=== PATIENT | female | born 1960 | race Caucasian/White ===

== ENCOUNTER 2016-09-14 13:00 | Inpatient (IN) | payer SELFPAY ==
[~2016-09-14] VITALS: Ht 165.1 cm; Wt 124.9 kg
--- NOTE | ~2016-09-14 | OR ---
PATIENT'S NAME: CHEMO DAVALOS [facility] AGE: 55 Y [address] ROOM: [address] [address] LOCATION: [facility] ADMIT DATE: 09/29/2016 OR/Procedure Report DISCHARGE DATE: FAMILY PHYSICIAN: Destini Mg MD ATTENDING PHYSICIAN: Wilfrido Henderson SURGEON: Wilfrido Henderson MD ENGRAVINGS POLISHER: BENNY Ann DATE OF PROCEDURE: 09/29/2016 PREOPERATIVE DIAGNOSIS: Varus osteoarthritis, left knee. POSTOPERATIVE DIAGNOSIS: Varus osteoarthritis, left knee. OPERATION PERFORMED: [facility] computer navigated tricompartmental cemented left total knee replacement. ANESTHESIA: Subarachnoid block. INDICATIONS: This is a 55-year-old female with clinical and radiographic evidence of moderately severe varus OA, left knee, no longer responsive to nonoperative treatment to give her pain relief. DESCRIPTION OF PROCEDURE: The patient was brought to the operating room, and when a satisfactory spinal anesthesia had been established, her left lower extremity was prepped and draped in an aseptic manner. The skin over the planned incision was injected with Armand mix and an anterior incision made and carried down through the subcutaneous fat. The quadriceps tendon and medial capsule were injected with Armand mix and a quadriceps-splitting approach utilized such that the patella could be everted laterally and dislocated. The patella was measured at 22 mm and cut down to 14, and an A32 appeared to fit the best. So, the 3 fixation holes were drilled. The cut surface of the patella was protected with A29 trial. The knee was flexed and the ASM gantry pinned to the distal femoral articular surface. Hip flexion was registered and the center of rotation of the hip found. The center of the intercondylar notch in the AP femoral angle and the medial and lateral femoral condyles were then all registered. The alignment jig was placed and cut planned for 0 degrees of varus and valgus at 5 degrees of flexion and 8 mm depth of resection. The cutting block was pinned in place, and the distal femoral cut was made. The footed sizing jig was then placed and positioned with 3 degrees of external rotation. The 2 provisional fixation holes were drilled and #4 cutting block selected. It was impacted home and the anterior femoral cut made. It was satisfactory, so the anterior femoral chamfer and posterior femoral chamfer cuts were made. The tibia was then exposed and the soft tissues debrided. The ASM gantry was pinned to the tibial articular surface, and the center of the tibia, midline of the tibia, medial and lateral tibial PATIENT'S NAME: CHEMO DAVALOS [facility] AGE: 55 Y [address] ROOM: [address] [address] LOCATION: [facility] ADMIT DATE: 09/29/2016 OR/Procedure Report DISCHARGE DATE: FAMILY PHYSICIAN: Destini Mg MD ATTENDING PHYSICIAN: Wilfrido Henderson plateaus, and medial and lateral malleoli were all registered. The alignment jig was placed and cut planned for 0 degrees of varus and valgus at 4 degrees posterior slope and 9 mm depth of resection off the lateral tibial plateau. The cutting block was pinned in place and the tibial cut made. Posterior capsule was then injected with Armand mix and bleeding controlled with the Aquamantys on the posterior capsule. The #4 tibial template appeared to fit the best, and it was positioned on the top of the tibia and the template pinned in place. The tower was clipped onto the template and the plunger impacted home. The trial reduction was then performed with 9 and 11 mm trial spacers. The 11 mm allowed full extension and was still stable in varus and valgus stressing. The trial implants were removed, and cut bony surfaces irrigated and dried while cement was mixed. The tibial tray was cemented into place first, and excess cement removed while soft with a Pollok elevator. The 11 mm X3 spacer was impacted home, and the femoral and patellar components cemented into place. Excess cement was removed while soft with a Pollok elevator and with an osteotome and mallet once the cement had set. The knee was then irrigated copiously with saline. The quadriceps tendon was then closed with a running #1 Vicryl. The remainder of the closure was by BENNY Isaac, who closed the medial capsule with a running #1 Vicryl, subcutaneous fat with a running 2-0 Vicryl, and the skin with skin vish. Dressings were applied, and the patient sent to the recovery area, having tolerated the procedure well. MD KRISTI HICKEY/sam /[id number] d: 09/29/16 1321 t: 10/01/16 1649, OPERATIVE SUMMARY
--- NOTE | ~2016-09-14 | DS ---
PATIENT'S NAME: CHEMO DAVALOS [facility] [place] AGE: 55 Y [address] ROOM: [address] [address] LOCATION: [id number] ADMIT DATE: 09/29/2016 Discharge Summary DISCHARGE DATE: 10/01/2016 FAMILY PHYSICIAN: Destini Mg MD ATTENDING PHYSICIAN: Wilfrido Henderson ADMISSION DIAGNOSIS: Left knee degenerative joint disease. COMORBIDITIES: Obstructive sleep apnea with home use of BiPAP, tobacco abuse, BMI greater than 45, and COPD. HOSPITAL COURSE: The patient was admitted for the aforementioned degenerative joint disease of her right knee. She had a right total knee arthroplasty performed with [employer] computer-navigated components, size asymmetric 32 patella, size 4 femur, size 4 tibial component, and an 11 x 11 mm thick spacer was placed. At her hospital course, she did get tranexamic acid perioperatively as well as intraoperative local mix for her pericapsular pain relief in the postoperative period. She was put on Xarelto 10 mg p.o. for 12 days for postop DVT prophylaxis. Dilaudid was used for additional pain control. On postop visit, neurovascular was intact to the operative foot. Postop day 1, the pain was reasonably well controlled. Postop hemoglobin was 12.4. On postop day 1, the patient seemed mildly over-sedated and Toradol was added to her pain control regimen. Flexeril was added as the Valium was too sedating for her. DISCHARGE INSTRUCTIONS: As she was discharged to home included dressing change or leave the dressing alone, do not change the Mepilex until followup visit in 6-12 days. May resume Celebrex on October 02. Continue Xarelto for DVT prophylaxis for 10 additional postop days. Prescriptions were written for Flexeril 5 mg 1 p.o. t.i.d. as needed, dispensed 30; nicotine patch in a tapering regimen; Dilaudid 2 mg, 1-2 p.o. q.4 hours as needed for pain, dispensed 60, no refills. BENNY STEVEN FOR MD JACQUELIN HICKEY/sam /[id number] d: 10/07/16 0152 t: 11/03/16 1058, DISCHARGE SUMMARY
[2016-09-14] MEDS ORDERED: ADVIL200 MG PO (13:04)
[2016-09-14] MEDS ORDERED: MAXITROL EYE DRO5 ML OPHTH (13:05)
[2016-09-14] MEDS ORDERED: BIPAP INH (13:06)
[2016-09-14] MEDS ORDERED: OXYGEN M-15 INH (13:06)
--- NOTE | 2016-09-29 17:06 | NUR ---
PATIENT RETURNED TO ROOM AT 1100. VSS. ROUTINE VS. UP TO BR WITH ONE ASSIST, TOLERATED FAIR WITH SOME SOB. O2 SAT ON ROOM AIR WAS ABOVE 90%. USES CPAP AT NIGHT. DILAUDID PO LAST AT 1530, IV DILAUDID AT 1645. VOIDING QS. STOCKINETTE WRAP D/I TO LEFT LEG. PEDAL PULSES DOPPLED. CSM ADEQUATE. NO N/V. VALIUM AT 1530 2.5 MG. USES O2 AT NIGHT WITH CPAP.
--- NOTE | 2016-09-30 03:21 | NUR ---
Significant Event: A/O X 3. SAT UP IN RECLINER CHAIR DURING EVENING. AMBULATED TO BR WITH GAITBELT AND WALKER ONE ASSIST, GAIT SLIGHT UNSTEADY. VOIDS, NO PROBLEM. NO BM, DENIES NUMBNESS OR TINGLING TO LOWER EXTREMITIES. NO NAUSEA, TAKES FLUIDS. IV SALINE LOCK INTACT. ATB THERAPY AT 0000 OF CLINDAMYCIN. AT BEGINNING OF SHIFT SATS 89% ON ROOMAIR. 02 APPLIED 2L NASAL CANNULA. ENCOURAGE INCENTIVE SPIROMETER USAGE. 4050-6102. SOB WITH ACTIVITY, HAD DILAUDID 2MG TAB FOR PAIN. ON ROUTINE SCHEDULE TYLENOL X ST 1000MG 2300/0500. EZ-WRAP TO LEFT KNEE. NANCY HORNER DRY-INTACT. Follow up:
[2016-09-30 05:05] LABS: HEMATOCRIT 37.9 % (33.0-46.0); HEMOGLOBIN 12.4 g/dL (10.0-15.0)
--- NOTE | 2016-09-30 09:15 | NUR ---
Introduced self/role to patient. Lives in [place]. She is self pay as her insurance would not approve this surgery. She has the financial assistance form at home. Has no questions about it. Has the DME she feels like she will need. Denied any barriers to discharge or at home.
--- NOTE | 2016-09-30 16:25 | NUR ---
Significant Event: DRESSING TO L) KNEE C/D/I. CSM ASSESSMENTS WNL TO L) LOWER LEG. AMBULATES TO BATHROOM WITH 1 ASSIST, USE OF WALKER AND GAIT BELT. SHORT OF BREATH WITH ACTIVITY. UP TO CHAIR WITH ASSIST. DILAUDID 2MG TAB GIVEN AT 1615, IV TORADOL AND TYLENOL EXTRA STRENGTH 2 TABS GIVEN AT 1052. EZ WRAP TO L) KNEE. BILATERAL FOOT PUMPS ON. PO VALIUM 5MG GIVEN AT 0934. PLEASANT AND COOPERATIVE WITH CARES. Follow up:
--- NOTE | 2016-10-01 04:26 | NUR ---
Significant Event: A/O X 3. NANCY DRSG LEFT KNEE DRY-INTACT WITH EZ-WRAP. FOOT PUMPS TO FEET. SAT UP IN CHAIR, AMBULATED TO BR WITH ONE ASSIST WALKER AND GAIT BELT, MOVES SLOW. HAS PAIN WITH MOVEMENT. GOLDBERG DDILAUDID 2MG PO, DILAUDID 0.2MG IV. TORADOL 15MG IV FOR PAIN. ON ROUTINE SCHEDULED TYLENOL X ST 1000MG 2300/0500. PAIN RATE 5-10 RANGE. POSSIBLE TO GO HOME TODAY. PATIENT HAS OWN CPAP MACHINE WEARS 02 4L. SATS STAYED ABOVE 90%. sob with activity. Follow up:
[2016-10-01 09:31] LABS: ANION GAP 8.8 (10.0-19.0); BLOOD UREA NITROGEN 10 mg/dL (6-24); CALCIUM 8.2 mg/dL (8.5-10.5); CHLORIDE 104 mMol/L (96-110); CO2 30 mMol/L (22-32); CREATININE 0.7 mg/dL (0.5-1.1); ESTIMATED GFR (MDRD EQUATION) > 60; POTASSIUM 3.8 mMol/L (3.7-5.1); SODIUM 139 mMol/L (135-145)
[2016-10-01] MEDS ORDERED: TYLENOL EXTRA500 MG PO (11:46)
[2016-10-01] MEDS ORDERED: CELEBREX200 MG PO (11:47)
[2016-10-01] MEDS ORDERED: COLACE100 MG PO (11:48)
[2016-10-01] MEDS ORDERED: MIRALAX17 GM PO (11:49)
[2016-10-01] MEDS ORDERED: XARELTO10 MG PO (11:50)
[2016-10-01] MEDS ORDERED: DILAUDID 2MG(HYD2 MG PO (11:53)
[2016-10-01] MEDS ORDERED: FLEXERIL10 MG PO (11:54)
[2016-10-01] MEDS ORDERED: NICOTINE PATCH1 EAC1 TOP (11:56)
--- NOTE | 2016-10-01 13:48 | NUR ---
Patient was AOx3. VSS. CSM WNL. Dressing was C/D/I. FLexiril given prior to dismissal. Patient has no questions or concerns about discharge instructions. Patient was wheeled out to front lobby for dissmissal home with daughter at 1330.
== END 2016-10-01 13:30 | disposition disaster alternative care site (69) | DRG 470 ==
LOC: G3N 09-29 05:59
PROVIDERS: ADMIT Orthopaedic Surgery
PROC: 0SRD0J9 Replacement of Left Knee Joint with Synthetic Substitute, Cemented, Open Approach (ICD-10-PCS; principal; 2016-09-29)
DX: M17.12 Unilateral primary osteoarthritis, left knee (principal); J96.11 Chronic respiratory failure with hypoxia; Z68.42 Body mass index [BMI] 45.0-49.9, adult; G47.33 Obstructive sleep apnea (adult) (pediatric); F17.200 Nicotine dependence, unspecified, uncomplicated; J44.9 Chronic obstructive pulmonary disease, unspecified; E66.01 Morbid (severe) obesity due to excess calories
CPT/HCPCS: C1713; C1776; J0171; J0690; J0735; J1170; J1885; J2001; J2795; J7030; J7040; J7120

== ENCOUNTER → 2016-09-16 | Outpatient (CLI) | payer SELFPAY ==
[~2016-09-16] MED LIST: ADVIL200 MG PO; BIPAP INH; CELEBREX200 MG PO; COLACE100 MG PO; DILAUDID 2MG(HYD2 MG PO; FLEXERIL10 MG PO; MAXITROL EYE DRO5 ML OPHTH; MIRALAX17 GM PO; NICOTINE PATCH1 EAC1 TOP; OXYGEN M-15 INH; TYLENOL EXTRA500 MG PO; XARELTO10 MG PO
== END | disposition disaster alternative care site (69) ==
LOC: GNJRC 10:23
DX: Z01.812 Encounter for preprocedural laboratory examination (principal)